=== PATIENT | male | born 2000 | race Caucasian/White ===

== ENCOUNTER 2024-07-05 10:30 | Emergency (ER) | payer BC, SELFPAY ==
[2024-07-05 10:32] VITALS: BP 120/69; PULSE 51; RESP 16; TEMP 36.6; O2SAT 100; BMI 27.5
--- NOTE | 2024-07-05 10:53 | RAD_ITS ---
PROCEDURE: RIBS UNI MIN 3V W/PA CHEST REASON FOR EXAM: Trauma, with pain of the lower anterior right ribs. TECHNIQUE: Five view right rib series to include a PA chest ribs. COMPARISON: None provided. RAD/Ribs Uni Min 3V w/PA Chest IMPRESSION: No fracture site is seen. If clinical concern persists, short-term follow-up imaging may be obtained to r ule out a currently occult fracture. Lungs appear clear throughout. No pleural effusion or pneumothorax is noted. The cardiomediastinal silhouette is within the normal range. Reading Location: [id number]
--- NOTE | 2024-07-05 11:46 | EX.ED.GENINJ ---
HPI History of Present Illness Chief Complaint: Chest Other Detail of Chief Complaint: Blood chest trauma this past weekend at the gym Informant: patient Onset/Context/Timing Onset: Days Mechanism/Context: Blunt Injury Location of pain/injuries: - (Anterior lower right ribs) Quality of Pain: Dull Location: 8, ninth, 10th right ribs anteriorly midclavicular line to anterior axillar Current Severity: Mild Maximum Severity: Moderate Worsened by: Movement and breathing Relieved by: Remaining still and not breathing Associated Symptoms Associated Symptoms: Negative for Parasthesias, Weakness, Loss of function or Loss of consciousness Narrative Narrative: Patient is a 23-year-old male. He was at the gym. He was doing an exercise where he injured his anterior right lower ribs. He was doing a leg exercise. He was prone at the time. He denies shortness of breath. Denies dyspnea exertion. He denies pain referred to his right shoulder. He denies orthostatic symptoms. He is not on an antithrombotic or anticoagulant. Patient applied IcyHot a couple of days ago with no improvement. He took 1 dose of ibuprofen with no improvement. Prior similar symptoms: No Recent Illness/Hospitalization: No PFSH PFSH Allergy/AdvReac Type Severity Reaction Status Date / Time No Known Allergies Allergy Verified 07/05/24 10:34 Surgical History no surgical history no surgical history Social History Smoking Status: Never smoker [facility] ED Cardiovascular Cardiovascular: Reports chest pain; Denies palpitations or racing heartbeat Respiratory/Chest Respiratory/Chest: Denies cough, dyspnea or dyspnea on exertion Gastrointestinal Gastrointestinal: Reports other Details: He has no symptoms to suggest cholelithiasis. There is no family history of cholelithiasis. ; Denies abdominal pain, nausea or vomiting Genitourinary Genitourinary ED: Denies hematuria Hematologic/Lymphatic Hematologic/Lymphatic: Denies easy bleeding or easy bruising EXAM Physical Exam Const Vital Signs: 07/05/24 10:32 Temperature 97.9 F Temperature Source Oral Pulse Rate 51 L Respiratory Rate 16 Blood Pressure 120/69 Blood Pressure Mean 86 Pulse Ox 100 Oxygen Delivery Method Room Air Positive well nourished and well developed General Appearance ED: well developed and NAD HEENT atraumatic Nose: Negative for septum abnormal Eyes PERRL and EOMs intact bilaterally Chest Wall inspection of chest normal and palpation of chest normal Chest Narrative: There is pain outpatient over the eighth and ninth rib and anteriorly along the midclavicular line. There is no crepitus or subcutaneous air. He did have pain laterally on the right side with AP pressure of the sternum. Resp normal respiratory effort and clear to auscultation bilaterally Cardio regular rhythm, S1 normal heart sound, S2 normal heart sound and no murmurs GI normal to inspection, nondistended, normoactive bowel sounds, non-tender, non-distended and no masses Extremity normal to inspection and full ROM Neuro oriented x3 and CN's II-XII intact bilaterally Sweetser Coma Scale: document GCS findings Spontaneous Obeys Commands Oriented 15 Sensorium / Orientation: alert Psych mental status grossly normal and thought process normal Skin no rashes or lesions noted, no wounds, skin turgor normal and no jaundice MDM MDM MDM Narrative Medical decision making narrative: X-ray with right rib detail was obtained to evaluate for pneumothorax, hemothorax and fractured ribs. Radiography Chest X-Ray - ED: Read by ED Physician (4 views were obtained and there is no evidence of fracture. There is no evidence of pneumothorax or hemothorax. Lung parenchyma appeared normal. Cardiac silhouette and size was normal.) Diagnostic Testing: Clinical Impression(s) from Imaging Studies Ribs w/Chest X-Ray 07/05/24 10:53 IMPRESSION: No fracture site is seen. If clinical concern persists, short-term follow-up imaging may be obtained to rule out a currently occult fracture. Lungs appear clear throughout. No pleural effusion or pneumothorax is noted. The cardiomediastinal silhouette is within the normal range. Reading Location: [address] Discharge Plan Triage Chief Complaint: Chest Other ED Provider: Rock Pulliam Dx/Rx/DC Orders Clinical Impression: Contusion of rib on right side, Sinus bradycardia Instructions: ED Bruise, Rib Primary Care Provider: Care Physician,No Primary Referrals: Care Physician,No Primary [Primary Care Provider] - Activity Restrictions/Additional Instructions: 1. Apply ice to your anterior right ribs 6 times a day for next 3 to 5 days. 2. Take 4 ibuprofen tablets every 8 hours for the next 3 to 5 days. 3. Application of heat will make your pain worse. 4. Avoid activity that causes you pain. Print Language: Hebrew Disposition Disposition: Home, Self Care
[2024-07-05 12:26] VITALS: BP 129/76; PULSE 82; RESP 15; TEMP 36.4; O2SAT 98
== END 2024-07-05 12:27 | disposition home or self-care (01) ==
PROVIDERS: Emergency Provider Emergency Medicine; Visit Provider Emergency Medicine
DX: S20.211A Contusion of right front wall of thorax, initial encounter (principal); X58.XXXA Exposure to other specified factors, initial encounter
CPT/HCPCS: 71101; 99282